=== PATIENT | male | born 1980 | race Caucasian/White ===

== ENCOUNTER 2018-05-15 10:53 | Emergency (ER) | payer SELFPAY ==
[~2018-05-15] VITALS: Ht 172.7 cm; Wt 72.7 kg
[2018-05-15 10:53] VITALS: TEMP 98.2
[2018-05-15] MEDS ORDERED: EFFEXOR 75M75 MG/TAB PO (11:24)
[2018-05-15] MEDS ORDERED: EC-NAPROSYN500 MG PO (11:25)
[2018-05-15] MEDS ORDERED: CATAPRES 0.1MG0.1 MG PO (11:25)
[2018-05-15] MEDS ORDERED: NORCO 325 MG-51 TAB PO (12:11)
[2018-05-15 13:25] VITALS: BP 146/86; PULSE 78
== END 2018-05-15 13:27 | disposition home or self-care (01) ==
LOC: COL.ER 10:53
DX: S43.015A Anterior dislocation of left humerus, initial encounter (principal); W01.10XA Fall on same level from slipping, tripping and stumbling with subsequent striking against unspecified object, initial encounter; Y92.89 Other specified places as the place of occurrence of the external cause
CPT/HCPCS: J2405; J2704; J3010; J7030

== ENCOUNTER 2019-03-06 13:03 | Emergency (ER) | payer OTHER ==
[~2019-03-06] VITALS: Ht 180.3 cm; Wt 100.0 kg
[~2019-03-06 13:03] MED LIST: CATAPRES 0.1MG0.1 MG PO; EC-NAPROSYN500 MG PO; EFFEXOR 75M75 MG/TAB PO; NORCO 325 MG-51 TAB PO
[2019-03-06 13:05] VITALS: TEMP 97
[2019-03-06 13:44] LABS: COLLECTION METHOD CLEAN CATCH
[2019-03-06] MEDS ORDERED: PAXIL40 MG PO (13:45)
[2019-03-06] MEDS ORDERED: CATAPRES0.3 MG PO (13:45)
[2019-03-06 13:49] LABS: MUCOUS Present /lpf; PH 5 (5-8); SQUAMOUS EPITHELIAL 0-2 /hpf; URINE APPEARANCE Hazy; URINE BACTERIA Rare /hpf; URINE BILIRUBIN Negative (NEGATIVE); URINE BLOOD 2+ (NEGATIVE); URINE COLOR Yellow; URINE GLUCOSE Negative (NEGATIVE); URINE KETONE Negative (NEGATIVE); URINE LEUKOCYTE ESTERASE Negative (NEGATIVE); URINE NITRATE Negative (NEGATIVE); URINE PROTEIN(semi-quant) 1+ (NEGATIVE); URINE RBC 0-2 /hpf; URINE UROBILINOGEN Negative (NEGATIVE)
[2019-03-06 13:50] LABS: BASO # 0.1 (0.0-0.2); BASO % 0.8 % (0.0-2.0); EOS # 0.2 (0.0-0.7); EOS % 1.9 % (0-4.0); GRAN % 67.2 % (42.2-75.2); HEMATOCRIT 47.7 % (42.0-52.0); HEMOGLOBIN 16.9 g/dl (13.5-18.0); LYMPH # 2.1 (1.2-3.4); LYMPH % 23.3 % (20.0-51.0); MEAN CELL VOLUME 91 fl (80.0-100.0); MEAN CORPUSCULAR HEMOGLOBIN 32 pg (27.0-31.0); MEAN CORPUSCULAR HGB CONC 35 g/dl (33.0-37.0); MEAN PLATELET VOLUME 9.9 fl (7.4-10.4); MONO # 0.5 (0.1-0.6); MONO % 6.1 % (1.7-9.3); PLATELET COUNT 307 K/mm3 (130-400); RED BLOOD COUNT 5.26 M/mm3 (4.20-5.60); REDCELL DISTRIBUTION WIDTH-CV 12.8 % (11.5-14.5)
[2019-03-06 13:57] LABS: TRICYCLIC ANTIDEPRESS URINE NEGATIVE
[2019-03-06 14:02] LABS: ALANINE AMINOTRANSFERASE 27 U/L (21-72); ALBUMIN 4.8 gm/dL (3.5-5.0); ALKALINE PHOSPHATASE 66 U/L (50-136); ANION GAP 15 mmol/L (7-16); AST,SGOT 44 U/L (15-37); BILIRUBIN,TOTAL 0.5 mg/dL (0.0-1.0); BLOOD UREA NITROGEN 14 mg/dL (9-20); CALCIUM 10.1 mg/dL (8.4-10.2); CARBON DIOXIDE 22 mmol/L (22-30); CHLORIDE 106 mmol/L (98-107); CREATININE, serum 1.13 (0.66-1.25); GLUCOSE 103 mg/dL (74-106); POTASSIUM 3.8 mmol/L (3.4-5.0); SODIUM 143 mmol/L (137-145); TOTAL PROTEIN 8.6 gm/dL (6.4-8.2)
[2019-03-06 14:06] LABS: ACETAMINOPHEN < 10 ug/mL (10-30); ALCOHOL(ethanol),MEDICAL < 10 mg/dL; SALICYLATE < 1.0 mg/dL
[2019-03-06 18:45] VITALS: BP 142/108; PULSE 85
== END 2019-03-06 18:45 ==
LOC: COL.ER 13:03
PROVIDERS: Family Medicine
DX: F32.9 Major depressive disorder, single episode, unspecified (principal); F43.10 Post-traumatic stress disorder, unspecified; F41.9 Anxiety disorder, unspecified; R45.851 Suicidal ideations

== ENCOUNTER 2020-02-10 12:41 | Observation (INO) | payer OTHER ==
[~2020-02-10] VITALS: Ht 180.3 cm; Wt 100.7 kg
[~2020-02-10 12:41] MED LIST changes: +CATAPRES0.3 MG PO; +PAXIL40 MG PO
[2020-02-10 13:12] LABS: COLLECTION METHOD CLEAN CATCH
[2020-02-10 13:13] LABS: BASO # 0.1 (0.0-0.2); BASO % 0.8 % (0.0-2.0); EOS # 0.2 (0.0-0.7); EOS % 1.8 % (0-4.0); GRAN # 6.4 (1.4-6.5); GRAN % 60.9 % (42.2-75.2); HEMATOCRIT 50.7 % (42.0-52.0); HEMOGLOBIN 17.4 g/dl (13.5-18.0); LYMPH % 28.3 % (20.0-51.0); MEAN CELL VOLUME 90 fl (80.0-100.0); MEAN CORPUSCULAR HEMOGLOBIN 31 pg (27.0-31.0); MEAN CORPUSCULAR HGB CONC 34 g/dl (33.0-37.0); MEAN PLATELET VOLUME 9.9 fl (7.4-10.4); MONO # 0.8 (0.1-0.6); MONO % 7.6 % (1.7-9.3); PLATELET COUNT 315 K/mm3 (130-400); RED BLOOD COUNT 5.61 M/mm3 (4.20-5.60); REDCELL DISTRIBUTION WIDTH-CV 12.8 % (11.5-14.5)
[2020-02-10 13:28] LABS: MUCOUS Present /lpf; PH 5 (5-8); SQUAMOUS EPITHELIAL None Seen /hpf; URINE APPEARANCE Cloudy; URINE BACTERIA None Seen /hpf; URINE BILIRUBIN Negative (NEGATIVE); URINE BLOOD 3+ (NEGATIVE); URINE COLOR Amber; URINE GLUCOSE Negative (NEGATIVE); URINE KETONE Negative (NEGATIVE); URINE LEUKOCYTE ESTERASE Negative (NEGATIVE); URINE NITRATE Negative (NEGATIVE); URINE PROTEIN(semi-quant) 2+ (NEGATIVE); URINE RBC >50 /hpf; URINE UROBILINOGEN Negative (NEGATIVE)
[2020-02-10 13:39] LABS: ALBUMIN 4.9 gm/dL (3.5-5.0); BILIRUBIN,TOTAL 0.7 mg/dL (0.0-1.0); CREATININE, serum 1.27 (0.66-1.25); POTASSIUM 3.7 mmol/L (3.4-5.0); TOTAL PROTEIN 8.6 gm/dL (6.4-8.2)
[2020-02-10 16:56] VITALS: BP 145/85; PULSE 72; TEMP 98
[2020-02-10 17:26] VITALS: BP 145/86; PULSE 80
--- NOTE | 2020-02-10 18:52 | NUR ---
REPORT TO TANYA MORAN.
--- NOTE | 2020-02-10 18:52 | NUR ---
REPORT TO MIRZA MORAN.
[2020-02-10 19:49] VITALS: BP 140/87; PULSE 77; TEMP 98.3
[2020-02-10 20:00] VITALS: BP 140/87; PULSE 77
[2020-02-10 23:41] VITALS: BP 156/102; PULSE 70; TEMP 97.9
[2020-02-11] VITALS: BP 156/102; PULSE 70
[2020-02-11 03:17] VITALS: BP 141/103; PULSE 74; TEMP 97.8
[2020-02-11 04:31] VITALS: BP 134/86
[2020-02-11 04:32] VITALS: BP 134/86; PULSE 74
--- NOTE | 2020-02-11 04:37 | NUR ---
Patient continues to complain of pain >5 throughout the night. Small amounts of urine noted at a time. Bladder scan completed and noted to have less than 100ml in bladder. No stone present when urine is strained. PRN Zofran given x1 this shift. Effective. Patient has been NPO since midnight. Continues on Dilaudid ALL AROUND PRESSER. Patient is able to sleep throughout the night and notes to be snoring at times. Blood pressure noted to be elevated, but it appeared as if the cuff size was wrong. New cuff size used and blood pressure is in range. Remains afebrile. Will continue to monitor patient.
[2020-02-11 08:28] VITALS: BP 149/102; PULSE 73; TEMP 98.1
--- NOTE | 2020-02-11 09:07 | NUR ---
Operations Recruiter met with patient to discuss discharge planning. Patient lives in [place] with his [place] (ph#[phone]) and sees Dr. Chan for primary care. Patient uses a [facility] and not other D[facility]. Patient reports independence with ADLS and plans to return home upon discharge. Patient does not have DPOA-HC but was interested in the form. Patient states he is very tired and does not want to fill it out at this time. SW provided form. No needs identified at this time. SW to continue to follow as needed.
[2020-02-11 12:15] VITALS: BP 155/99; PULSE 98; TEMP 98.8
--- NOTE | 2020-02-11 15:51 | NUR ---
DISCHARGE INSTRUCTIONS PROVIDED TO PATIENT, QUESTIONS ANSWERED PT LEFT AMBULATORY.
== END 2020-02-11 15:52 | disposition home or self-care (01) ==
LOC: COL.ER 12:41 → JCC 14:30
PROVIDERS: Emergency Medicine; ADMIT Urology
DX: N20.1 Calculus of ureter (principal); F17.210 Nicotine dependence, cigarettes, uncomplicated
CPT/HCPCS: G0378; J1170; J1885; J2405; J7030; J7120; Q9967